=== PATIENT | female | born 1995 | race Hispanic/Latino ===

== ENCOUNTER 2018-02-08 06:50 | Observation (INO) | payer MEDICAID, OTHER ==
[2018-02-13] MEDS ORDERED: PREN-202 PO (01:31)
== END 2018-02-08 09:14 | disposition home or self-care (01) ==
LOC: LDH 06:50
PROVIDERS: ADMIT Obstetrics & Gynecology; ATTEND Obstetrics & Gynecology
DX: O62.9 Abnormality of forces of labor, unspecified (principal); Z3A.36 36 weeks gestation of pregnancy
CPT/HCPCS: G0378 ×3